=== PATIENT | female | born 1955 | race Caucasian/White ===

== ENCOUNTER 2019-12-12 17:52 | Emergency (ER) | payer OTHER ==
[~2019-12-12] VITALS: Ht 162.6 cm; Wt 63.5 kg
[2019-12-12 19:09] LABS: ABSOLUTE NEUTROPHILS 5.7 thou/uL (1.4-8.2); BASOPHILS 1.1 % (0.0-2.0); EOSINOPHILS 1.9 % (0.0-3.0); HEMATOCRIT 39.7 % (37.0-47.0); HEMOGLOBIN 12.8 gm/dL (12.0-15.0); MCHC 32.3 g/dL (28.0-37.0); MCV 83.6 fL (80.0-100.0); MONOCYTES 8.7 % (1.0-8.0); PLATELET COUNT 227 thou/uL (150-400); POLYS 71.3 % (36.0-66.0); RBC 4.75 mil/uL (4.20-5.00); RDW 16.3 % (10.5-14.5); WBC 8.8 thou/uL (4.0-11.0)
[2019-12-12 19:22] LABS: CALCIUM 9.4 mg/dL (8.5-10.1); POTASSIUM 3.5 mmol/L (3.5-5.1)
[2019-12-12 19:27] LABS: ALBUMIN 3.7 g/dL (3.4-5.0); DIRECT BILIRUBIN 0.1 mg/dL (<0.1-0.2); TOTAL BILIRUBIN 0.7 mg/dL (<0.1-1.0); TOTAL PROTEIN 7.7 g/dL (6.4-8.2)
[2019-12-12 20:19] LABS: URINE BILIRUBIN NEGATIVE (Negative); URINE BLOOD 1+ (Negative); URINE CLARITY CLEAR; URINE COLOR YELLOW; URINE GLUCOSE-RANDOM* NEGATIVE (Negative); URINE KETONES NEGATIVE (Negative); URINE NITRITE-REFLEX NEGATIVE (Negative); URINE PROTEIN (DIPSTICK) NEGATIVE (Negative); URINE SPECIFIC GRAVITY 1.025 (1.005-1.035); URINE UROBILINOGEN 0.2 E.U./dl (0.2-1.0)
[2019-12-12 20:22] LABS: URINE LEUKOCYTES-REFLEX 1+ (Negative)
[2019-12-12 20:30] LABS: BACTERIA-REFLEX 1-9 Few /HPF (None Seen); CASTS None Seen /LPF (None Seen); CRYSTALS None Seen /LPF (None Seen); SQUAMOUS 0-3 Few /LPF (0-3); URINE RBC 0-2 Rare /HPF (0-2); URINE WBC-REFLEX 0-5 Rare /HPF (0-5)
[2019-12-12] MEDS ORDERED: VALIUM2 MG PO (21:02)
[2019-12-12] MEDS ORDERED: REGLAN 5 MG TAB5 MG PO (21:02)
[2019-12-12 21:11] VITALS: BP 110/78
== END 2019-12-12 21:14 | disposition home or self-care (01) ==
LOC: ER 17:52
PROVIDERS: Emergency Medicine
DX: G44.209 Tension-type headache, unspecified, not intractable (principal); M54.2 Cervicalgia; R63.0 Anorexia

== ENCOUNTER 2020-12-08 15:56 | Emergency (ER) | payer OTHER ==
[~2020-12-08] VITALS: Ht 165.1 cm; Wt 59.0 kg
[~2020-12-08 15:56] MED LIST: CYCLOBENZAPRINE5 MG PO; LISINOPRIL10 MG PO; NORCO 5-325 TA1 EAC1 PO; ONDANSETRON HCL4 M2 PO; REGLAN 5 MG TAB5 MG PO; VALIUM2 MG PO
[2020-12-08] MEDS ORDERED: PROZAC20 MG PO (16:59)
[2020-12-08] MEDS ORDERED: NORCO 10-325 T1 EACH PO (16:59)
[2020-12-08] MEDS ORDERED: LISINOPRIL20 MG PO (16:59)
[2020-12-08 17:09] VITALS: BP 154/118
== END 2020-12-08 17:16 | disposition home or self-care (01) ==
LOC: ER 15:56
DX: S50.01XA Contusion of right elbow, initial encounter (principal); R51.9 Headache, unspecified; I10 Essential (primary) hypertension; Z79.899 Other long term (current) drug therapy; W21.03XA Struck by baseball, initial encounter; Y93.89 Activity, other specified; Y92.89 Other specified places as the place of occurrence of the external cause; Y99.8 Other external cause status